=== PATIENT | male | born 1955 | race African-American/Black ===

== ENCOUNTER → 2022-07-27 | Outpatient (CLI) | payer BC ==
[~2022-07-27] MED LIST: ATORVASTATIN CA20 MG PO; CARVEDILOL25 MG PO; HYDROCHLOROTHIA25 MG PO; IOPAMIDOL 370 MG/ML 100 ML INFUS..BTL INJ ONE; MULTI-VITAMIN1 EACH PO
[2022-07-27 09:20] LABS: CREATININE, SERUM 0.59 mg/dL (0.72-1.25)
== END ==
LOC: NM 08:28
PROVIDERS: ATTEND Urology
DX: C61 Malignant neoplasm of prostate (principal)
CPT/HCPCS: 36415; 71046; 74177; 78306; 82565; 84520; A9503; Q9967